=== PATIENT | male | born 1985 | race Hispanic/Latino ===

== ENCOUNTER 2018-03-30 19:29 | Emergency (ER) | payer OTHER ==
[2018-03-30] MEDS ORDERED: SULFAMETHOX-TMP DS 800/160 TAB ONE (20:06)
[2018-03-30] MEDS ORDERED: TETANUS/DIPHTHERIA TOXOID [ADULT] 0.5 ML VIAL IM ONE (20:07)
== END 2018-03-30 20:54 | disposition home or self-care (01) ==
LOC: EDH 19:29
DX: L03.116 Cellulitis of left lower limb (principal); B35.3 Tinea pedis
CPT/HCPCS: 73630; 90471; 90714